=== PATIENT | male | born 1980 | race Hispanic/Latino ===

== ENCOUNTER → 2025-01-12 | Day surgery (SDC) | payer OTHER ==
[~2025-01-12] MED LIST: FENTANYL CITRATE/PF 100MCG/2 ML INJ ONE; HYOSCYAMINE SULFATE 0.5 MG/ML INJ ONE; METFORMIN HCL500 MG PO; PROPOFOL IV EMULSION 10 MG/ML 20 ML VIAL ONE
[2025-01-12] MEDS: LACTATED RINGER'S 1,000 ML ONE (08:49)
[2025-01-12 11:18] VITALS: TEMP 97.5
[2025-01-12 12:05] VITALS: BP 145/97; PULSE 88; RESP 16; O2SAT 98
== END | disposition home or self-care (01) ==
LOC: OR 07:58
PROVIDERS: ATTEND Internal Medicine Gastroenterology
DX: Z12.11 Encounter for screening for malignant neoplasm of colon (principal); K63.5 Polyp of colon; K64.8 Other hemorrhoids; K57.90 Diverticulosis of intestine, part unspecified, without perforation or abscess without bleeding; K57.32 Diverticulitis of large intestine without perforation or abscess without bleeding; Z01.810 Encounter for preprocedural cardiovascular examination; Z68.26 Body mass index [BMI] 26.0-26.9, adult; Z87.19 Personal history of other diseases of the digestive system
CPT/HCPCS: 36415; 45385; 82948; 93005; J1980; J2704; J3010; J7121